=== PATIENT | female | born 1990 | race Hispanic/Latino ===

== ENCOUNTER 2024-02-25 10:41 | Emergency (ER) | payer BC, MEDICAID ==
[~2024-02-25] VITALS: Ht 157.5 cm; Wt 79.4 kg
[2024-02-25 12:08] VITALS: BP 110/65; PULSE 78; RESP 18; O2SAT 99
== END 2024-02-25 12:16 | disposition home or self-care (01) ==
LOC: EDH 10:41
DX: S09.90XA Unspecified injury of head, initial encounter (principal); E11.649 Type 2 diabetes mellitus with hypoglycemia without coma; R55 Syncope and collapse; X58.XXXA Exposure to other specified factors, initial encounter; Y93.89 Activity, other specified; Y92.89 Other specified places as the place of occurrence of the external cause; Y99.8 Other external cause status
CPT/HCPCS: 82948

== ENCOUNTER 2024-09-24 06:30 | Day surgery (SDC) | payer BC ==
[2024-09-22 14:20] LABS: BASOPHILS # (AUTO) 0.04 K/uL (0.00-0.20); BASOPHILS % (AUTO) 0.5 % (0.0-5.0); EOSINOPHILS # (AUTO) 0.15 K/uL (0.00-0.70); HEMATOCRIT 37.4 % (36-48); IMMATURE GRANULOCYTE ABSOLUTE 0.02 K/uL (0-1); LYMPHOCYTES # (AUTO) 2.6 K/uL (1.0-4.8); MEAN CORPUSCULAR HEMOGLOBIN 25.2 pg (27.0-33.0); MEAN CORPUSCULAR HGB CONC 32.4 g/dL (32.0-36.0); MEAN CORPUSCULAR VOLUME 77.9 fL (79-99); MONOCYTES # (AUTO) 0.3 K/uL (0.1-1.0); NEUTROPHILS # (AUTO) 4.5 K/uL (1.8-7.7); NEUTROPHILS % (AUTO) 59.2 % (40.0-77.0); PLATELET COUNT (AUTO) 391 K/uL (130-400); RED CELL DISTRIBUTION WIDTH 13.2 % (11.0-15.5); WHITE BLOOD COUNT (AUTO) 7.6 K/uL (4.8-10.8)
[2024-09-22 14:55] VITALS: BP 124/60; PULSE 63; RESP 16; TEMP 98.1
[2024-09-24] VITALS (16 sets, daily range): BP systolic 119–157; BP diastolic 59–76; PULSE 56–72; RESP 14–17; TEMP 97.2–98
[~2024-09-24] VITALS: Ht 157.5 cm; Wt 84.0 kg
[~2024-09-24 06:30] MED LIST: TIRZ10PE SQ
[2024-09-24] MEDS: ceFAZolin SODIUM 2 GM VIAL ONE (06:39)
[2024-09-24] MEDS: LACTATED RINGERS 1000ML 1,000 ML IV ONE (06:40)
[2024-09-24] MEDS ORDERED: FENTanyl CITRate PF 50 MCG/1 ML 2ML VIAL ONE (07:19)
[2024-09-24] MEDS ORDERED: MIDAZOLAM HCL 1 MG/ML 2ML VIAL ONE (07:19)
[2024-09-24] MEDS ORDERED: proPOFol 10 MG/ML 20ML VIAL IV ONE (07:19)
[2024-09-24] MEDS ORDERED: dexaMETHasone SOD PHOSPHATE 10MG/ML 1ML VIAL ONE (07:20)
[2024-09-24] MEDS ORDERED: rocuRONium bROMide 10MG/1ML 5ML VL ONE (07:20)
[2024-09-24] MEDS ORDERED: LIDOCAINE PF 100MG/5ML (2%) SYRINGE 5ML ONE (07:20)
[2024-09-24] MEDS ORDERED: NEOSTIGMINE METHYLSULFATE 1MG/ML IV ONE (07:21)
[2024-09-24] MEDS ORDERED: ondanSETRON 4MG INJ ONE (07:21)
[2024-09-24] MEDS ORDERED: GLYCOPYRROLATE 0.2 MG/ML 5 ML VIAL ONE (07:21)
[2024-09-24] MEDS ORDERED: phenylEPHRINE HCL 10 MG/ML 1ML VIAL IV ONE ×2 (07:25→07:28)
[2024-09-24] MEDS: ceFAZolin SODIUM 2 GM VIAL IVPB ONE (08:00)
--- NOTE | 2024-09-24 08:50 | OP ---
DATE OF PROCEDURE: 09/24/2024 PREOPERATIVE DIAGNOSIS: Menorrhagia POSTOPERATIVE DIAGNOSIS: Menorrhagia PROCEDURE: * D and C with hysteroscopy. * NovaSure endometrial ablation. SURGEON: Alfredo Rosa MD. OFFICE CLERK ROUTINE: None. ANESTHESIA: General. COUNTS: Complete. COMPLICATIONS: None. DRAINS: None. SPECIMENS: Endometrial curettings. ESTIMATED BLOOD LOSS: Minimal. FINDINGS: * External genitalia, vagina and cervix were grossly unremarkable. * Hysteroscopic examination of the cavity revealed it to be regular in size, shape, and contour. There were no polyps or fibroids. DESCRIPTION OF PROCEDURE: Under general anesthesia, the patient was scrubbed and draped in the usual dorsal lithotomy position. A weighted speculum was placed in the vagina and the cervix secured with a tenaculum. The uterus was sounded to 10 cm and the endocervical canal measured to 4.5 cm, yielding a cavity length of 5.5 cm. No dilation was necessary. I was able to introduce the hysteroscope and evaluated the uterine cavity. At this point, the scope was removed and a sharp curettage performed yielding a scant amount of tissue, which was forwarded to pathology. The NovaSure device was then introduced and deployed to a cavity with of 4.5 cm. After a successful test an uninterrupted treatment cycle was completed at 136 joel for a total duration of 1 minute 57 seconds. The device was removed intact and discarded. There was no bleeding per the cervical os. The patient tolerated the procedure well and without evidence of any complications. She was transferred to recovery following extubation. TID: [id number] RECEIPT: [id number]
[2024-09-24] MEDS ORDERED: MEPERIDINE-PF 25 MG/ML SYG ONE (09:05)
--- NOTE | 2024-09-24 10:36 | NUR ---
Patient aox4. Denies c/o pain or discomfort. OB pad clean, dry and intact. Voiced understanding to surgical precautions and follow up expectations. Ambulated to bathroom with standby assist. Voided large amount of clear urine. PIV discontinued with catheter tip intact. Full and complete Discharge instructions given to Patient and Friend All questions answered. W/C to POV with Friend to Home.
[2024-09-24] MEDS ORDERED: KETO10TA2 PO (21:48)
== END 2024-09-24 10:30 | disposition home or self-care (01) ==
LOC: DAH 06:30
PROVIDERS: ATTEND Obstetrics & Gynecology
DX: N92.0 Excessive and frequent menstruation with regular cycle (principal); E22.1 Hyperprolactinemia; D25.9 Leiomyoma of uterus, unspecified; E28.2 Polycystic ovarian syndrome; N94.6 Dysmenorrhea, unspecified; N83.02 Follicular cyst of left ovary; Z79.899 Other long term (current) drug therapy
CPT/HCPCS: 84703; 85025 ×2; 86850; 86900; 86901; 36415 ×2; 58563; 96372; 99284; 80048; 82948 ×2; 88305; J7030; A4351; A4355; J7120; J3010; J1100; J2270; J3490 ×2; J2003; J2250; J2704; J2405; J2710; J2371; J0690 ×2; A4930; A4215; A4223; A4222; A4221; A4663; A4600; J2175

== ENCOUNTER 2024-09-24 20:29 | Emergency (ER) | payer BC ==
[~2024-09-24] VITALS: Ht 157.5 cm; Wt 82.6 kg
[2024-09-24] MEDS: morPHINE 2 MG SYG IM ONE (20:53)
[2024-09-24 21:12] LABS: BASOPHILS # (AUTO) 0.01 K/uL (0.00-0.20); BASOPHILS % (AUTO) 0.1 % (0.0-5.0); HEMATOCRIT 39.6 % (36-48); IMMATURE GRANULOCYTE ABSOLUTE 0.05 K/uL (0-1); LYMPHOCYTES # (AUTO) 1.1 K/uL (1.0-4.8); LYMPHOCYTES % (AUTO) 7.7 % (21.0-51.0); MEAN CORPUSCULAR HEMOGLOBIN 24.7 pg (27.0-33.0); MEAN CORPUSCULAR HGB CONC 33.3 g/dL (32.0-36.0); MEAN CORPUSCULAR VOLUME 74.2 fL (79-99); MONOCYTES # (AUTO) 0.4 K/uL (0.1-1.0); MONOCYTES % (AUTO) 2.9 % (3.0-13.0); NEUTROPHILS # (AUTO) 12.8 K/uL (1.8-7.7); PLATELET COUNT (AUTO) 467 K/uL (130-400); RED BLOOD CELL COUNT(AUTO) 5.34 MIL/uL (4.00-5.50); RED CELL DISTRIBUTION WIDTH 13.2 % (11.0-15.5); WHITE BLOOD COUNT (AUTO) 14.4 K/uL (4.8-10.8)
[2024-09-24 21:17] LABS: CREATININE 0.7 mg/dL (0.5-1.0)
[2024-09-24 21:45] VITALS: BP 120/74; PULSE 90; RESP 20; TEMP 98.5; O2SAT 100
[2024-09-24] MEDS ORDERED: KETO10TA2 PO (21:48)
--- NOTE | 2024-09-24 21:48 | ERN ---
General Chief Complaint: Post-Op Problem Stated Complaint: BILATERAL LEG CRAMPING, POST UTERINE ABLASION Time Seen by MD: 20:34 Time Seen by Midlevel: 20:34 Source: patient History of Present Illness Initial Comments Patient is a 33-year-old female presenting to the emergency department with bilateral leg cramping following a uterine ablation that was performed this morning by Dr. Rosa. Patient states she was in and out on the same day. She developed lower extremity cramping and decided to report to the ER for further evaluation. She states the cramping is not in the calf area but it is in the anterior part of the legs. Denies having any history of blood clots. Denies any shortness for breath, chest pain, or any other symptoms at this time. Allergies: Coded Allergies: No Known Drug Allergies (Unverified Allergy, Unknown, 02/25/24) Home Meds Active Scripts Ketorolac Tromethamine (Ketorolac Tromethamine) 10 Mg Tablet, 1 TAB PO TID for pain for 5 Days, #15 TAB 0 Refills Prov:BRISSA GRECO 09/24/24 Reported Medications Tirzepatide (Mounjaro) 10 Mg/0.5 Ml Pen.injctr, 10 MG SQ QWEEK 09/22/24 Past Medical History Past Medical History: Diabetes-Type II Past Surgical History: Tonsillectomy, Other, BTL Surgical History Other: NASAL Female( History) LMP: Sep 13, 2024 ROS Dictation CONSTITUTIONAL: Negative except for HPI HEAD/FACE: Negative except for HPI EENT: Negative except for HPI RESPIRATORY: Negative except for HPI GASTROINTESTINAL/ABDOMINAL: Negative except for HPI GENITOURINARY: Negative except for HPI MUSCULOSKELETAL: Negative except for HPI INTEGUMENTARY: Negative except for HPI NEUROLOGICAL/PSYCH: Negative except for HPI HEMATOLOGIC/LYMPHATIC: Negative except for HPI All Systems Negative, Except as noted above. 13 point review of systems assessed and all negative except for above. Physical Exam Physical Exam Dictation Vital Signs reviewed General Appearance: Alert, oriented x 3, no acute distress, well developed, nourished. Head and Face: non-traumatic. Eyes: PERRL, pink conjunctivas, eyelid no trauma, anterior chamber with arcus senilis. Ears: Pinnas intact and no signs of trauma or erythema ear canals clear and no discharge TM no erythema Nose: No discharge, no bleeding. Oropharynx: Mouth normal, tongue pink, pharynx clear,no erythema, tonsils no exudates, no abscesses noted, mucous membrane moist Neck: Supple, non-tender, no thyromegaly, no masses, no JVD, no bruits Breast:Deferred Chest:No tenderness, no crepitus, no paradoxical movement, no retractions Lungs:Clear, well-ventilated, symmetric, no rales, no wheezing, no rhonchi, no stridor, good breath sounds bilaterally Heart: Regular rate, regular rhythm, no murmur, no gallops Vascular: no peripheral edema, Abdomen: Soft, positive bowel sounds, nondistended, no guarding, nontender, no rebound, no masses no hepatomegaly, no splenomegaly, no Rojas's sign, no hernias. Rectal: Deferred Genital: Deferred Neurological: Normal speech, motor function intact, sensory function intact Musculoskeletal: Neck nontender, full range of motion, back nontender, full range of motion, Extremities: nontender, full range of motion Skin: Color pink, dry, no turgor, no rash, no lacerations, no abrasions, no contusions. Lymphatic: Deferred Results Laboratory and Microbiology Lab and Micro Result Laboratory Tests Test 09/24/24 20:52 White Blood Count 14.4 K/uL (4.8-10.8) H Red Blood Count 5.34 MIL/uL (4.00-5.50) Hemoglobin 13.2 g/dL (12.0-16.0) Hematocrit 39.6 % (36-48) Mean Corpuscular Volume 74.2 fL (79-99) L Mean Corpuscular Hemoglobin 24.7 pg (27.0-33.0) L Mean Corpuscular Hemoglobin Concent 33.3 g/dL (32.0-36.0) Red Cell Distribution Width 13.2 % (11.0-15.5) Platelet Count 467 K/uL (130-400) H Mean Platelet Volume 9.4 fL (7.5-10.5) Immature Granulocyte % (Auto) 0.3 % (0-1) Neutrophils (%) (Auto) 89.0 % (40.0-77.0) H Lymphocytes (%) (Auto) 7.7 % (21.0-51.0) L Monocytes (%) (Auto) 2.9 % (3.0-13.0) L Eosinophils (%) (Auto) 0.0 % (0.0-8.0) Basophils (%) (Auto) 0.1 % (0.0-5.0) Neutrophils # (Auto) 12.8 K/uL (1.8-7.7) H Lymphocytes # (Auto) 1.1 K/uL (1.0-4.8) Monocytes # (Auto) 0.4 K/uL (0.1-1.0) Eosinophils # (Auto) 0.00 K/uL (0.00-0.70) Basophils # (Auto) 0.01 K/uL (0.00-0.20) Absolute Immature Granulocyte (auto 0.05 K/uL (0-1) Nucleated Red Blood Cells 0.0 % (0.0-0.19) White Cell Morphology Comment See comments Red Blood Cell Morphology See comments Sodium Level 140 mmol/L (136-145) Potassium Level 4.0 mmol/L (3.5-5.1) Chloride Level 104 mmol/L (101-111) Carbon Dioxide Level 25 mmol/L (21-32) Blood Urea Nitrogen 6 mg/dL (7-18) L Creatinine 0.7 mg/dL (0.5-1.0) Glomerular Filtration Rate Calc 116 mL/min (>90) Random Glucose 131 mg/dL (70-105) H Total Calcium 8.9 mg/dL (8.5-10.1) Labs Reviewed?: Yes MDM MDM: Patient is a 33-year-old female presenting to the emergency department with bilateral leg cramping following a uterine ablation that was performed this morning by Dr. Rosa. Patient states she was in and out on the same day. She developed lower extremity cramping and decided to report to the ER for further evaluation. She states the cramping is not in the calf area but it is in the anterior part of the legs. Denies having any history of blood clots. Denies any shortness for breath, chest pain, or any other symptoms at this time. On physical examination patient is ambulatory without assistance with a normal gait. Her physical examination is unremarkable. Her vital signs are stable. Patient is afebrile and nontoxic appearing. Her O2 saturation is 100% on room air. She has negative Homans sign bilaterally. The pain appears to be in the anterior portion of bilateral lower extremities. She was good distal pulses to bilateral lower extremities. 2+ DP, PT pulses bilaterally. Have a low clinical suspicion for DVT at this time. I obtain a CBC and a basic metabolic panel to rule out any electrolyte derangements however her blood work is unremarkable. Patient was given 2 mg of morphine IM and states her cramping has significantly improved. Patient was advised to follow up with your PCP tomorrow for repeat evaluation or return to the ER for any new or worsening symptoms. Differential diagnosis: Electrolyte abnormality, deep vein thrombosis, cramping, wellness examination There are no social concerns with this patient. Prescription drug management Prescriptions will include: Toradol Medical management and examination interpretation discussions were had by me with other qualified healthcare professionals as indicated for the patient's care. ED Course Orders Procedure Category Date Status Time Cbc With Differential LAB 09/24/24 Complete 20:31 Basic Metabolic Panel LAB 09/24/24 Complete 20:31 Morphine 2mg Syg PHA 09/24/24 Complete (Morphine 2mg Syg) 21:00 Current Medications Medications (Trade) Dose Ordered Sig/Annette Route PRN Reason Start Time Stop Time Status Last Admin Dose Admin Morphine Sulfate (morPHINE 2MG SYG) 2 mg ONCE ONCE IM 09/24/24 21:00 09/24/24 21:01 DC 09/24/24 20:53 Vital Signs Date Time Temp Pulse Resp B/P (MAP) Pulse Ox O2 Delivery O2 Flow Rate FiO2 09/24/24 21:45 98.4 90 20 120/74 100 Room Air* 0 21 09/24/24 20:36 98.8 87 20 128/78 100 Room Air* 0 21 09/24/24 20:31 97.9 87 16 120/74 99 Room Air DX & DISP Disposition: Discharge Departure Impression: Primary Impression: Leg cramping Condition: Stable Scripts Ketorolac Tromethamine (Ketorolac Tromethamine) 10 Mg Tablet 1 TAB PO TID for pain for 5 Days, #15 TAB 0 Refills Prov: BRISSA GRECO 09/24/24 Additional Instructions: Your physical examination is reassuring. Your leg cramping may be associated with your recent use of anesthesia. Have a low suspicion for a blood clot however if your symptoms do not improve over the next couple of days where he developed worsening symptoms you will need to return to the ER for further evaluation. I have given you a prescription for Toradol which should help with your postsurgical pain. Follow up with your primary care doctor in 2-3 days for repeat evaluation. Return to the emergency department for any new or worsening symptoms. Referrals: CATHY PAINTER (PCP) Time of Disposition: 21:47 I have reviewed the case, and I agree with, Diagnosis and Plan I performed the substantive portion of the visit. I have reviewed and personally made and approve the management plan that is documented in the note by myself or the BHAVNA. I acknowledge for responsibility for the patient's management plan. BRISSA GRECO Sep 24, 2024 21:48
== END 2024-09-24 21:52 | disposition home or self-care (01) ==
LOC: EDH 20:29
DX: R25.2 Cramp and spasm (principal); E11.9 Type 2 diabetes mellitus without complications; Z79.85 Long-term (current) use of injectable non-insulin antidiabetic drugs; Z90.89 Acquired absence of other organs; Z98.51 Tubal ligation status; Z79.899 Other long term (current) drug therapy; Z98.890 Other specified postprocedural states
CPT/HCPCS: 99284; 80048; 85025; 36415; 96372; J2270